=== PATIENT | male | born 1950 | race Asian ===

== ENCOUNTER 2019-04-23 15:52 | Emergency (ER) | payer SELFPAY ==
[~2019-04-23] VITALS: Ht 170.2 cm; Wt 77.1 kg
--- NOTE | 2019-04-23 16:24 | NUR ---
BIB SELF DIZZY EPISODE S/P SMOKING MARIJUANA TODAY/ ALERT AND ORIENTED X3, BREATHING EVEN AND UNLABORED WITH NO DISTRESS NOTED. SKIN INTACT. WAITING TO BE SEEN BY
[2019-04-23] MEDS ORDERED: IV NS 0.9% 500 ML BAG IV ONE (16:30)
--- NOTE | 2019-04-23 16:34 | NUR ---
AT BEDSIDE. STATE PT WILL LEAVE AMA
--- NOTE | 2019-04-23 16:34 | NUR ---
MADE AWARE OF REFUSAL
--- NOTE | 2019-04-23 16:34 | NUR ---
PT REFUSES BLOOD TO BE DRAWN AND EKG
--- NOTE | 2019-04-23 16:41 | NUR ---
PT REFUSES CARE AND AMA WAS SIGNED BY PT AND
[2019-04-23 16:43] VITALS: BP 139/92
== END 2019-04-23 16:44 | disposition left against medical advice (07) ==
LOC: ER 15:54
DX: I48.91 Unspecified atrial fibrillation (principal); I10 Essential (primary) hypertension; R55 Syncope and collapse; R42 Dizziness and giddiness; F12.10 Cannabis abuse, uncomplicated; R00.0 Tachycardia, unspecified
CPT/HCPCS: 93005; 99283; J7040